=== PATIENT | female | born 1960 | race Caucasian/White ===

== ENCOUNTER 2017-03-13 15:15 | Observation (INO) | payer BC ==
[~2017-03-13] VITALS: Ht 160 cm; Wt 60.0 kg
[2017-03-13 15:23] VITALS: BP 164/90; PULSE 83; RESP 18; TEMP 97.8; O2SAT 96
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
[2017-03-13] MEDS ORDERED: SODIUM CHLOR 0.9% 1000 ML INJ 1,000 ML IV SCH ×2 (16:31→17:37)
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
[2017-03-13] MEDS ORDERED: oxyCODONE/ACETAMINOPHEN 10 MG/325 MG TAB PO ONE (16:45)
[2017-03-13] MEDS ORDERED: KETOROLAC TROMETHAMINE 30 MG/ML (IVP) VIAL IV PUSH ONE (16:45)
[2017-03-13] MEDS ORDERED: SODIUM CHLORIDE 0.9% FLUSH 10 ML FLUSH IVF PRN (16:45)
[2017-03-13 16:49] VITALS: BP 142/77; PULSE 84; RESP 16; TEMP 98.2; O2SAT 98
[2017-03-13 16:57] LABS: AUTOMATED NEUTROPHIL # 17.1 TH/MM3 (1.8-7.7); BASOPHIL # 0.1 TH/MM3 (0-0.2); BASOPHIL % 0.2 % (0.0-2.0); EOSINOPHIL # 0.1 TH/MM3 (0-0.4); EOSINOPHIL % 0.5 % (0.0-4.0); HEMATOCRIT 37.3 % (35.0-46.0); HEMO FLAGS DIFF FINAL; LYMPH % 13.6 % (9.0-44.0); MEAN CELL VOLUME 94.5 FL (80.0-100.0); MEAN CORPUSCULAR HEMOGLOBIN 31.5 PG (27.0-34.0); MEAN CORPUSCULAR HGB CONC 33.3 % (32.0-36.0); MONO % 7.8 % (0.0-8.0); NEUT % 77.9 % (16.0-70.0); PLATELET COUNT 321 TH/MM3 (150-450); RED BLOOD COUNT 3.95 MIL/MM3 (4.00-5.30); RED CELL DISTRIBUTION WIDTH 13.5 % (11.6-17.2)
[2017-03-13 17:18] LABS: ALT (GPT) 43 U/L (10-53); ANION GAP 9 MEQ/L (5-15); AST (GOT) 49 U/L (15-37); BICARBONATE 27.5 MEQ/L (21.0-32.0); BLOOD UREA NITROGEN 25 MG/DL (7-18); CHLORIDE 98 MEQ/L (98-107); GLOMERULAR FILTRATION RATE 94 ML/MIN (>89); MAGNESIUM 2.1 MG/DL (1.5-2.5); SODIUM (NA) 134 MEQ/L (136-145)
[2017-03-13 17:19] LABS: APTT (PATIENT) 24.4 SEC (24.3-30.1); PROTHROMBIN TIME - PATIENT 10.7 SEC (9.8-11.6)
[2017-03-13 17:22] LABS: ALKALINE PHOSPHATASE 81 U/L (45-117); CREATINE KINASE 804 U/L (26-192); TOTAL BILIRUBIN ADULT 0.5 MG/DL (0.2-1.0)
[2017-03-13 17:24] VITALS: BP 136/76; PULSE 85
[2017-03-13 17:34] LABS: CKMB 27.2 NG/ML (0.5-3.6)
[2017-03-13] MEDS ORDERED: AMPH1TAB67 PO (17:38)
[2017-03-13] MEDS ORDERED: PERC10TA27 PO (17:38)
[2017-03-13] MEDS ORDERED: XANA1TAB2 PO (17:38)
[2017-03-13] MEDS ORDERED: DICL1GEL7 TOPICAL (17:38)
[2017-03-13] MEDS ORDERED: OMEP20TA PO (17:38)
[2017-03-13] MEDS ORDERED: LISI-515 PO (17:38)
[2017-03-13] MEDS ORDERED: TRAZ300T2 PO (17:41)
[2017-03-13] MEDS ORDERED: CYMB60CA PO (17:41)
[2017-03-13] MEDS ORDERED: ROPI0.25 PO (17:41)
[2017-03-13] MEDS ORDERED: ZANA2CAP PO (17:41)
[2017-03-13] MEDS ORDERED: GABA300C5 PO (17:41)
[2017-03-13] MEDS ORDERED: IBUP800T23 PO (17:41)
[2017-03-13 17:55] LABS: AMPHETAMINE, URINE POS (NEG); BARBITURATES, URINE NEG (NEG); COCAINE, URINE NEG (NEG)
--- NOTE | 2017-03-13 18:03 | RADRPT ---
EXAM DATE/TIME: 03/13/2017 16:57 [facility] COMPARISON: No previous studies available for comparison. INDICATIONS : Congestion. MEDICAL HISTORY : None. SURGICAL HISTORY : Breast augmentation. ENCOUNTER: Initial ACUITY: 4 - 6 days PAIN SCORE: 0/10 LOCATION: Bilateral chest FINDINGS: The heart size is normal. There is increased density seen over the lower aspects of the chest bilater ally likely secondary to overlying soft tissues in the breast. A focal consolidation is not clearly seen. Significant effusion is not seen. CONCLUSION: No definite acute cardiopulmonary process. Samir Mcdonald MD on March 13, 2017 at 17:52 Board Certified Radiologist. This report was verified electronically.
[2017-03-13] MEDS ORDERED: CEPHALEXIN MONOHYDRATE 500 MG CAP PO ONE (18:30)
[2017-03-13] MEDS ORDERED: SULFAMETHOXAZOLE-TRIMETHOPRIM DS 800-160 MG TAB PO ONE (18:30)
[2017-03-13 19:00] LABS: BLOOD, URINE TRACE (NEG); COMMENT (UR) CULT NOT INDICATED; CULTURE IF INDICATED CULT NOT INDICATED; GLUCOSE,URINE NEG (NEG); HYALINE CAST, URINE 4 /lpf (RARE); KETONE, URINE 10 mg/dL (NEG); MUCUS URINE FEW /lpf (OCC); NITRITE,URINE NEG (NEG); PH, URINE 5.5 (5.0-8.5); URINE COLOR YELLOW (YELLW/STRAW)
[2017-03-13] MEDS: ALPRAZolam 1 MG TAB PO PRN (20:28)
[2017-03-13 20:37] VITALS: BP 136/81; PULSE 101; RESP 20; O2SAT 96
[2017-03-13] MEDS: SODIUM CHLOR 0.9% 1000 ML INJ 1,000 ML IV SCH (20:46)
[2017-03-13] MEDS: DEXTROAMPHETAMINE/AMPHETAMINE 30 MG TAB PO SCH (20:50)
[2017-03-13] MEDS ORDERED: DICLOFENAC TOPICAL (21:00)
[2017-03-13] MEDS: DULoxetine HCl DR 60 MG CAP PO SCH (21:09)
[2017-03-13] MEDS: traZODone HCL 100 MG TAB PO SCH (21:10)
[2017-03-13] MEDS: oxyCODONE/ACETAMINOPHEN 10 MG/325 MG TAB PO PRN (21:10)
[2017-03-13 21:45] VITALS: BP 86/41; PULSE 66; RESP 18; TEMP 98.5; O2SAT 95
[2017-03-14 00:14] VITALS: BP 102/58; PULSE 89; RESP 18; TEMP 98.7; O2SAT 96
[2017-03-14] MEDS: oxyCODONE/ACETAMINOPHEN 10 MG/325 MG TAB PO PRN ×3 (03:42→22:41)
[2017-03-14 03:50] VITALS: BP 98/58; PULSE 89; RESP 18; TEMP 98.9; O2SAT 96
[2017-03-14] MEDS: SODIUM CHLOR 0.9% 1000 ML INJ 1,000 ML IV SCH ×3 (04:56→20:19)
[2017-03-14 06:23] LABS: MEAN CELL VOLUME 95.5 FL (80.0-100.0); MEAN CORPUSCULAR HEMOGLOBIN 31.8 PG (27.0-34.0); MEAN CORPUSCULAR HGB CONC 33.3 % (32.0-36.0); PLATELET COUNT 249 TH/MM3 (150-450); RED BLOOD COUNT 3.45 MIL/MM3 (4.00-5.30); RED CELL DISTRIBUTION WIDTH 13.6 % (11.6-17.2); REVIEW FLAG FINAL; WHITE BLOOD COUNT 12.7 TH/MM3 (4.0-11.0)
[2017-03-14 08:00] VITALS: BP 103/69; PULSE 74; RESP 16; TEMP 98.4; O2SAT 96
[2017-03-14 08:19] LABS: CKMB 11.9 NG/ML (0.5-3.6)
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
[2017-03-14] MEDS: DEXTROAMPHETAMINE/AMPHETAMINE 30 MG TAB PO SCH ×2 (09:00→20:20)
[2017-03-14] MEDS ORDERED: LISINOPRIL 20 MG TAB PO SCH (09:00)
[2017-03-14] MEDS: DULoxetine HCl DR 60 MG CAP PO SCH ×2 (09:06→20:19)
[2017-03-14] MEDS: PANTOPRAZOLE SOD 20 MG DELAYED RELEASE TAB PO SCH (09:06)
[2017-03-14] MEDS: GABAPENTIN 300 MG CAP PO SCH ×3 (09:06→17:53)
[2017-03-14] MEDS: LISINOPRIL 10 MG TAB PO SCH (09:07)
[2017-03-14 12:00] VITALS: BP 103/58; PULSE 102; RESP 16; TEMP 98; O2SAT 94
--- NOTE | 2017-03-14 13:44 | EKG ---
Date Performed: 03/13/2017 Time Performed: 16:41:54 PTAGE: 56 years EKG: Sinus rhythm MINIMAL ST DEPRESSION BORDERLINE ECG NO PREVIOUS TRACING DOCTOR: Amanda Ríos Interpretating Date/Time 03/14/2017 13:42:13
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
[2017-03-14 16:00] VITALS: BP 117/52; PULSE 104; RESP 16; TEMP 98; O2SAT 98
[2017-03-14 20:15] VITALS: BP 144/84; PULSE 80; RESP 18; TEMP 97.9; O2SAT 96
[2017-03-14] MEDS: traZODone HCL 100 MG TAB PO SCH (20:19)
[2017-03-14] MEDS: ALPRAZolam 1 MG TAB PO PRN (22:40)
[2017-03-15] MEDS: SODIUM CHLOR 0.9% 1000 ML INJ 1,000 ML IV SCH (04:21)
[2017-03-15 04:50] VITALS: BP 139/83; PULSE 81; RESP 16; TEMP 97.4; O2SAT 96
[2017-03-15] MEDS: oxyCODONE/ACETAMINOPHEN 10 MG/325 MG TAB PO PRN (04:57)
[2017-03-15 07:26] LABS: CKMB 3.9 NG/ML (0.5-3.6)
[2017-03-15 08:00] VITALS: BP 122/76; PULSE 80; RESP 18; TEMP 96.7; O2SAT 97
[2017-03-15] MEDS: LISINOPRIL 10 MG TAB PO SCH (09:09)
[2017-03-15] MEDS: DEXTROAMPHETAMINE/AMPHETAMINE 30 MG TAB PO SCH (09:10)
[2017-03-15] MEDS: GABAPENTIN 300 MG CAP PO SCH (09:10)
[2017-03-15] MEDS: DULoxetine HCl DR 60 MG CAP PO SCH (09:10)
[2017-03-15] MEDS: PANTOPRAZOLE SOD 20 MG DELAYED RELEASE TAB PO SCH (09:10)
--- NOTE | 2017-03-15 09:50 | HHI.PR ---
Subjective Remarks Sitting up in bed No acute chest pain shortness of breath or muscular aches Chronic low back pain Awake talkative Hoping to go home (Edwige Fields) Objective Objective Results - Vital Signs Date Time Temp Pulse Resp B/P Pulse Ox O2 Delivery O2 Flow Rate FiO2 03/15/17 04:50 97.4 81 16 139/83 96 03/14/17 20:15 97.9 80 18 144/84 96 03/14/17 16:00 98.0 104 16 117/52 98 03/14/17 12:00 98.0 102 16 103/58 94 I/O 03/14/17 03/14/17 03/14/17 03/15/17 03/15/17 03/15/17 06:59 14:59 22:59 06:59 14:59 22:59 Intake Total 720 ml 580 ml 2146 ml 240 ml Balance 720 ml 580 ml 2146 ml 240 ml Intake Oral 720 ml 580 ml 240 ml 240 ml IV Total 1906 ml # Voids 7 3 1 2 # Bowel Movements 1 0 0 0 (Edwige Fields) Result Diagram: 03/14/17 0540 03/13/17 1630 ROS General: Weakness (improved), Other (10 point ROS done any positives are noted) Cardiac: Edema (mild facial, improved) Pulmonary: Cough (smoker) Neuro/MS: Other (low back pain chronic) (Edwige Fields) Physical Exam Physical Exam PHYSICAL EXAMINATION GENERAL: This is a well-developed, well-nourished female who appears to be in no acute distress. She is alert and awake, HEAD: Normocephalic without any lesion or mass noted. Facial features appear symmetric., Mild facial edema, no further IV fluids OROPHARYNGEAL: Oropharynx without erythema or edema. NECK: Supple. No nuchal rigidity or lymphadenopathy. Trachea midline without deviation. CARDIAC: Regular rhythm, regular rate, S1 and S2 are heard. LUNGS: Clear to auscultation bilaterally. Rare occasional wheeze ABDOMEN: Soft, nontender, no organomegaly or masses. Bowel sounds are heard in all four quadrants. No rebound. No guarding. EXTREMITIES: no edema. Pulses equal bilateral. NEUROLOGICAL: Patient mood and affect appropriate. Minimal anxiety and restlessnes SKIN:Warm and moist (Edwige Fields) A/P Assessment and Plan 1. Rhabdomyolysis. 2. Mood disorders with restlessness and anxiety. 3. History of PTSD. 4. Chronic pain which includes lower back and neck. 5. Tobacco dependence. 6. Alcohol dependence. Vital signs reviewed, afebrile normal trends Labs reviewed Rhabdomyolysis improving, symptoms controlled, no further complaints of any muscle aching Up sitting up in chair and up in room History and current restlessness thing anxiety, improved today appreciate psych consult and medical management adjustment. Patient is wanting to go home Other medical management comorbidities noted without any acute events. Tobacco dependence, education on abstinence, exercise, healthy lifestyle Appetite good Patient requested and had staph stop the IV fluids last night. Discussed with nurse Discussed with patient Discussed with Dr. Wall, seen on his behalf Discharge planning possible today, patient request, appears to be medically stable (Edwige Fields) Assessment and Plan Urgency and examined as above Labs and medications reviewed Advised to hold off Crestor until seen by primary care doctor Smoking cessation counseling has been given to the patient Patient psych input Discussed with patient in detail Discussed with RN Discussed with CHRIS about plan of care Not discharge her home today to be followed by her primary care doctor in pain management as outpatient Patient understood all Also advised to stop alcohol use. Patient has no drug issues. Patient understood all. (Vera Wall MD) Edwige Fields Mar 15, 2017 09:50 Vera Wall MD Mar 15, 2017 10:45
== END 2017-03-15 11:23 | disposition home or self-care (01) ==
LOC: NEPC 15:15 → INTOOBSV 19:13 → NEDA 19:13 → N06A 21:30
PROVIDERS: ADMIT Specialist; ATTEND Specialist
DX: M62.82 Rhabdomyolysis (principal); M54.2 Cervicalgia; G89.29 Other chronic pain; R45.1 Restlessness and agitation; R11.0 Nausea; I10 Essential (primary) hypertension; F43.10 Post-traumatic stress disorder, unspecified; F17.200 Nicotine dependence, unspecified, uncomplicated; F10.20 Alcohol dependence, uncomplicated; Z98.82 Breast implant status
CPT/HCPCS: 71010; 80053; 80307; 81001; 82550; 82552; 83735; 84484; 85025; 85027; 85610; 85730; 93005; 96361; 96374; 97162; 99285; G0378; G8987; G8988; J1885; J7030

== ENCOUNTER 2018-01-21 06:32 | Day surgery (SDC) | payer MEDICARE ==
[~2018-01-21] VITALS: Ht 160 cm; Wt 55.0 kg
[~2018-01-21 06:32] MED LIST: AMPH1TAB67 PO; COMMODE 3-IN-11 MIS; CYMB60CA PO; DICL1GEL7 TOPICAL; DOCU1CAP39 PO; DULO1CAP3 PO; FENT25DI T-DERMAL; GABA300C5 PO; GETGO ROLLING W1 MI1; IBUP1TAB7 PO; LIDO5%T TOPICAL; LISI-515 PO; NEUR300C PO; OMEP20TA93 PO; OXYC1TAB36 PO; PANT20 PO; PERC10TA27 PO; ROPI0.25 PO; ROPI1TAB PO; ROPI1TAB72 PO; TRAZ1TAB14 PO; TRAZ300T2 PO; TRAZ50TA12 PO; WHEEMIS3; XANA1TAB2 PO; ZANA2CAP PO; ZANA4CAP PO
[2018-01-21 07:10] VITALS: BP 161/95; PULSE 82; RESP 20; TEMP 97.5; O2SAT 95
[2018-01-21] MEDS ORDERED: LACTATED RINGER'S 1000 ML INJ 1,000 ML IV SCH (07:30)
[2018-01-21] MEDS ORDERED: DIAZEPAM 5 MG TAB PO SCH (07:30)
[2018-01-21 07:47] LABS: INTERNATIONAL NORMALIZED RATIO 1.1 RATIO; PROTHROMBIN TIME - PATIENT 10.7 SEC (9.8-11.6)
--- NOTE | 2018-01-21 10:52 | PD.RAD ---
Post Procedure Progress Note Pre Procedure Diagnosis: (1) Lumbar spinal stenosis (2) Chronic low back pain Post Procedure Diagnosis: (1) Lumbar spinal stenosis (2) Chronic low back pain Procedure Date: January 21, 2018 Supervising Radiologist: Gualberto Cordero Estimated blood loss: none Anesthesia: Local Plan of Activity Patient to Unit: [facility] Patient Condition: Good Additional Comments: LP completed 15cc of contrast administered. CT pending See PACS Report for procedural detail/treatment Gualberto Cordero MD January 21, 2018 10:52
[2018-01-21] MEDS ORDERED: ceFAZolin 2 GM/DEX PREMIX 50 ML IV SCH (11:00)
[2018-01-21 11:35] VITALS: BP 162/97; PULSE 68; RESP 18; TEMP 97.6; O2SAT 97
[2018-01-21] MEDS ORDERED: oxyCODONE/ACETAMINOPHEN 10 MG/325 MG TAB PO ONE (11:45)
[2018-01-21] MEDS ORDERED: ACETAMINOPHEN 325 MG TAB PO PRN (12:00)
--- NOTE | 2018-01-21 12:07 | RADRPT ---
EXAM DATE/TIME: 01/21/2018 11:17 [facility] COMPARISON: MYELOGRAM, CERVICAL AND LUMBAR SPINE, January 21, 2018, 10:43. INDICATIONS : Neck pain. Stenosis. Post myelogram. RADIATION DOSE: 17.45 CTDIvol (mGy) CT of the cervical spine was performed post myelogram. MEDICAL HISTORY : Hypertension. Gastroesophageal reflux disease. SURGICAL HISTORY : Hysterectomy. Fusion, lumbar.Lumbar laminectomy. ENCOUNTER: Initial ACUITY: 1 day PAIN SCALE: 5/10 LOCATION: neck TECHNIQUE: Volumetric scanning of the cervical spine was performed. Multiplanar reconstructions in the sagittal, coronal and oblique axial planes were performed. Using automated exposure control and adjustment o f the mA and/or kV according to patient size, radiation dose was kept as low as reasonably achievable to obtain optimal diagnostic quality images. DICOM format image data is available electronically f or review and comparison. FINDINGS: There is preservation of vertebral body height. There is mild retrolisthesis of C4 and C5 with respe ct to the levels above and below. Contrast is present within the thecal sac up to the posterior cm a. The visualized posterior fossa structures are intact. Cervical cord dimension is normal and ther e is some CSF seen about the cervical cord. Moderate discogenic degenerative changes are present at C4-5 and C5-6 with both anterior and posterior osteophytes. Mild posterior osteophyte formation is a lso present at C6-7. C2-C3: The bony spinal canal is normal in size. No evidence of disc bulge or herniation. The neural forami na are bilaterally patent. C3-C4: Central disc bulging or protrusion causes flattening of the ventral margin of the thecal sac. A thin amount of CSF is still seen about the cervical cord. There is mild left sided bony neural foraminal stenosis. C4-C5: Mild uncovertebral joint hypertrophy causes indentation on the left and right thecal sac. Minimal ce ntral bulging of the disc is also present. The neural foramen remain patent. C5-C6: Osteophytic ridging causes indentation on the ventral margin of the thecal sac. No evidence of disc bulge or protrusion. There is mild bilateral bony neural foraminal stenosis. C6-C7: The bony spinal canal is normal in size. No evidence of disc bulge or herniation. The neural forami na are bilaterally patent. C7-T1: The bony spinal canal is normal in size. No evidence of disc bulge or herniation. The neural forami na are bilaterally patent. CONCLUSION: 1. Epidural impressions at C3-4, C4-5, and C5-6 due to a combination of disc bulging/protrusion (C3-C 4), retrolisthesis, and osteophytic ridging. The 2. Mild neural foraminal narrowing at C3-4 and C5-6. Dirk Talbot MD on January 21, 2018 at 11:59 Board Certified Radiologist. This report was verified electronically.
--- NOTE | 2018-01-21 14:01 | RADRPT ---
EXAM DATE/TIME: 01/21/2018 11:17 [facility] COMPARISON: MRI LUMBAR SPINE W & W/O CONTRAST, May 26, 2017, 15:05. INDICATIONS : Low back pain. Post myelogram. RADIATION DOSE: 17.43 CTDIvol (mGy) CT of the lumbar spine was performed post myelogram. MEDICAL HISTORY : Gastroesophageal reflux disease. Hypertension. SURGICAL HISTORY : Hysterectomy. Fusion, lumbar.Lumbar laminectomy. ENCOUNTER: Initial ACUITY: 1 day PAIN SCALE: 5/10 LOCATION: Lumbar spine. TECHNIQUE: Volumetric scanning of the lumbar spine was performed. Multiplanar reconstructions in the sagittal, coronal and oblique axial planes were performed. Using automated exposure control and adjustment of the mA and/or kV according to patient size, radiation dose was kept as low as reasonably achievable t o obtain optimal diagnostic quality images. DICOM format image data is available electronically for review and comparison. FINDINGS: Myelo CT. Prior surgery with bilateral transpedicular screws at L4 and L5 and lateral screws on the right side L2 and L3. Orthotopic position of the interspace devices at L2-3 and L4-5. There is loss of height of the L3-4 interspace and dense sclerosis on both sides of the narrowed interspace. Mild curvature of the lumbar spine convex towards the left. Within the thecal sac, there is an oval low density smoothly marginated intrathecal lesion which surendra ures 2 cm in superior/inferior extent and 7 mm in AP dimension, located at the L1-2 level posterior a nd impressing upon the conus. This is similar in size and configuration when compared to prior MRI i n May 2017; there is no enhancement in this lesion on prior contrast-enhanced MR. T12-L1: The thecal sac has a normal diameter. No evidence of disc bulge or protrusion. The neural foramina are patent bilaterally. L1-L2: Minimal bulging of the disc causes flattening of the ventral margin of the thecal sac. there is some extension into the neural foramen bilaterally without evidence of neural impingement. L2-L3: The thecal sac is normal dimension. There is mild bulging of the disc into the neural foramen on the left side without neural impingement. L3-L4: There is an epidural impression measuring 7 mm in AP dimension, which appears to connect to the narro wed disc space, but has higher CT density than disc suggesting this may represent a sequestered disc fragment. This causes indentation on the ventral margin of the thecal sac and the AP dimension of th e thecal sac is narrowed. Left-sided laminectomy.. There is no lateral extension. L4-L5: Surgical level. The thecal sac is normal dimension. The neural foramen are patent. L5-S1: The thecal sac has a normal diameter. No evidence of disc bulge or protrusion. The neural foramina are patent bilaterally. CONCLUSION: 1. Intrathecal lesion posterior to and impressing upon the conus is similar in size and appearance wh en compared to prior MRI in May 2017. 2. 7 mm midline epidural impression centered at the L3-4 level suggesting sequestered disc fragment. Dirk Talbot MD on January 21, 2018 at 13:48 Board Certified Radiologist. This report was verified electronically.
[2018-01-21 14:40] VITALS: BP 158/96; PULSE 72; RESP 20; O2SAT 96
--- NOTE | 2018-01-23 08:25 | RADRPT ---
EXAM DATE/TIME: 01/21/2018 10:43 [facility] COMPARISON: No previous studies available for comparison. INDICATIONS : Patient presents with back pain in need of lumbar and cervical myelogram for further evaluation. MEDICAL HISTORY : Chronic back pain HTN GERD Athritis PTSD ADHD Bipolar CP SURGICAL HISTORY : Angioma resection Rigth lung resection Breast augmentation Hysterectomy Tonsillectomy Left carpal tunnel L3 fusion ENCOUNTER: Initial ACUITY: 7-11 months PAIN SCORE: 0/10 LOCATION: N/A LUMBAR PUNCTURE TIME: 10:42 hours FLUORO TIME: 1.96 minutes IMAGE SERIES: 4 CONTRAST: 15 cc Omnipaque (iohexol) 300 ACCESS LEVEL: L4-5 PROCEDURE : 1. Fluoroscopic guided lumbar puncture. 2. Instillation of intrathecal contrast. 3. Lumbar myelogram. 4. Cervical myelogram. The risks, benefits and alternatives to the procedure were explained and verbal and written consent w as obtained. The site was prepped in sterile fashion. Full sterile technique was used, including ca p, mask, sterile gloves and gown and a large sterile sheet. Hand hygiene and 2% chlorhexidine and/or betadine/alcohol prep was utilized per protocol for cutaneous antisepsis. The skin and subcutaneous tissues were infiltrated with local anesthetic solution. With fluoroscopic guidance the lumbar thecal sac was punctured at the L4 level and a diagnostic quant ity of contrast is present in the subarachnoid space. Following the lumbar radiographs contrast was p laced in the cervical region under fluoroscopic guidance. The lumbar images demonstrate fusion from L2 down to S1. There is narrowing of the thecal sac at L2-3 and L3-4. CT imaging is pending for further assessment. The patient tolerated procedure well and there were no complications. CT scan is to be performed for further evaluation. CONCLUSION: Uncomplicated lumbar and cervical myelogram as above. CT scan is to be performed for further evaluat ionRos Cordero MD on January 23, 2018 at 8:21 Board Certified Radiologist. This report was verified electronically.
== END 2018-01-21 14:45 | disposition home or self-care (01) ==
LOC: HROP 06:32 → HRIP 06:34 → HROP 14:45
PROVIDERS: ATTEND Neurological Surgery
DX: M48.061 Spinal stenosis, lumbar region without neurogenic claudication (principal); G89.29 Other chronic pain; M54.5 Low back pain; I10 Essential (primary) hypertension; F43.10 Post-traumatic stress disorder, unspecified; M54.2 Cervicalgia
CPT/HCPCS: 62305; 72125; 72131; 85610; 85730; J0690; J7120